=== PATIENT | male | born 1955 | race Hispanic/Latino ===

== ENCOUNTER 2022-04-09 23:00 | Inpatient (IN) | payer MEDICARE ==
[2022-04-09 23:45] LABS: #Basophils 0.1 10x3/uL (0.0-0.2); #Eosinphils 0.3 10x3/uL (0.0-0.5); #Monocytes 0.7 10x3/uL (0.0-1.1); #Neutrophils 7.6 10x3/uL (1.5-8.4); %Basophils 1.2 % (0.0-2.0); %Eosinophils 3.5 % (0.0-6.0); %Lymphocytes 6.1 % (18.0-47.0); %Monocytes 7.1 % (0.0-10.0); %Neutrophils 81.2 % (40.0-75.0); Mean Corpuscular HGB CONC 33.2 g/dL (32.0-36.0); Mean Corpuscular Hemoglobin 31.1 pg (27.0-33.0); Mean Corpuscular Volume 93.5 fl (81.2-95.1); Mean Platelet Volume 9.8 fl (7.4-10.4); Platelet Count 324 10x3/uL (150-450); RBC Distribution Width 16.6 % (11.5-14.5); Red Blood Cell (RBC) Count 3.22 10x6/uL (4.32-5.72); White Blood Cell (WBC) Count 9.4 10x3/uL (3.5-10.5)
[2022-04-10 00:08] LABS: ALT (SGPT) 29 U/L (8-55); AST (SGOT) 52 U/L (5-34); Albumin 4.2 g/dL (3.4-4.8); Alkaline Phosphatase 125 U/L (40-110); Anion Gap 17 mmol/L (10-20); BUN (Urea Nitrogen) 18 mg/dL (8.4-25.7); Bilirubin, Total 0.5 mg/dL (0.2-1.2); CK (CPK) 99 U/L (30-200); Calc. Creatinine Clearance 0 mL/min (70-130); Calcium 8.7 mg/dL (7.8-10.44); Carbon Dioxide 20 mmol/L (23-31); Chloride 106 mmol/L (98-107); Estimated GFR 67; Globulin 2.2 g/dL (2.4-3.5); Glucose 106 mg/dL (80-115); Potassium 4.7 mmol/L (3.5-5.1); Protein, Total 6.4 g/dL (5.8-8.1); Sodium 138 mmol/L (136-145)
[2022-04-10] MEDS ORDERED: Guaifenesin DM 100-10/5 ML UDCUP PO PRN (00:59)
[2022-04-10] MEDS ORDERED: Senokot S 8.6-50 MG TAB PO PRN (00:59)
[2022-04-10] MEDS ORDERED: Dextrose 50% Abboject 50 ML SYRINGE SLOW IVP PRN (00:59)
[2022-04-10] MEDS ORDERED: Ondansetron PF 4 MG/2 ML Vial IVP PRN (00:59)
[2022-04-10] MEDS ORDERED: Acetaminophen 325 MG TAB PO PRN (00:59)
[2022-04-10] MEDS ORDERED: Calcium Carbonate 500 MG ChewTAB PO PRN (00:59)
[2022-04-10] MEDS ORDERED: Dextrose 5% in Water 1,000 ML IV PRN (00:59)
[2022-04-10] MEDS ORDERED: Sodium Chloride 0.9% 500 ML IV SCH (04:00)
[2022-04-10 04:35] LABS: Bilirubin Neg (Negative); Blood, Urine 50 (Negative); Clarity Cloudy (Clear); Glucose, Urine (Dipstick) Normal (Negative); Ketone, Urine Negative (Negative); Leukocyte 500 (Negative); Nitrite Negative (Negative); Protein, Urine (Dipstick) 30 mg/dl (Neg-Trace); Specific Gravity, Urine 1.005 (1.005-1.030); Urobilinogen Normal mg/dL (Less than 2); pH, Urine 6.5 (5.0-9.0)
[2022-04-10 04:46] LABS: Bacteria/HPF 1+ HPF (None Seen); RBC/HPF 0-3 HPF (0-3); Squamous Epithelial 0-3 HPF (0-3); WBC/HPF Greater Than 50 HPF (0-3)
[2022-04-10] MEDS ORDERED: FLU VACC QS2022-23(65YR UP)/PF 240 MCG/0.7 ML SYRINGE IM ONE (06:00)
[2022-04-10 06:36] LABS: Troponin I 0.016 ng/mL (< 0.028)
[2022-04-10 06:38] LABS: Troponin I 0.019 ng/mL (< 0.028)
[2022-04-10] MEDS ORDERED: Enoxaparin Sodium 40 MG/0.4 ML SYRINGE SC SCH (09:00)
[2022-04-10] MEDS: Finasteride 5 MG TAB PO SCH (09:00)
[2022-04-10] MEDS: Icosapent Ethyl 1 GM CAPSULE PO SCH ×2 (09:00→21:49)
[2022-04-10] MEDS ORDERED: Iopamidol 370 76% 100 ML VIAL ONE (09:06)
[2022-04-10 12:46] LABS: Hemoglobin A1c 7.1 % (4.0-6.0)
[2022-04-10] MEDS: Gabapentin 300 MG CAP PO SCH ×3 (14:20→19:32)
[2022-04-10] MEDS: Clopidogrel Bisulfate 75 MG TAB PO SCH (14:21)
[2022-04-10] MEDS: Aspirin 81 mg Enteric Coated Tablet PO SCH (14:21)
[2022-04-10] MEDS: Tamsulosin HCl 0.4 MG CAP PO SCH (14:21)
[2022-04-10] MEDS ORDERED: Morphine 2 MG/ML VIAL SLOW IVP PRN (18:38)
[2022-04-10] MEDS: HumaLOG 300 UNITS/3 ML VIAL SC PRN (21:45)
[2022-04-10] MEDS: Simvastatin 10 MG TAB PO SCH (21:49)
[2022-04-10] MEDS: Enoxaparin Sodium 40 MG/0.4 ML SYRINGE SC SCH (21:49)
[2022-04-11 02:42] VITALS: BMI 26.6
[2022-04-11] MEDS: HumaLOG 300 UNITS/3 ML VIAL SC PRN ×3 (06:48→17:05)
[2022-04-11] MEDS: Clopidogrel Bisulfate 75 MG TAB PO SCH (08:24)
[2022-04-11] MEDS: Gabapentin 300 MG CAP PO SCH ×3 (08:24→20:46)
[2022-04-11] MEDS: Aspirin 81 mg Enteric Coated Tablet PO SCH (08:25)
[2022-04-11] MEDS: Icosapent Ethyl 1 GM CAPSULE PO SCH ×2 (08:25→20:47)
[2022-04-11] MEDS: Tamsulosin HCl 0.4 MG CAP PO SCH (08:25)
[2022-04-11] MEDS: Finasteride 5 MG TAB PO SCH (08:27)
[2022-04-11] MEDS: Simvastatin 10 MG TAB PO SCH (20:46)
[2022-04-11] MEDS: Enoxaparin Sodium 40 MG/0.4 ML SYRINGE SC SCH (20:46)
[2022-04-12] MEDS: HumaLOG 300 UNITS/3 ML VIAL SC PRN ×4 (02:13→17:14)
[2022-04-12 04:38] LABS: #Basophils 0.1 10x3/uL (0.0-0.2); #Eosinphils 0.3 10x3/uL (0.0-0.5); #Monocytes 0.5 10x3/uL (0.0-1.1); #Neutrophils 4.8 10x3/uL (1.5-8.4); %Basophils 1.3 % (0.0-2.0); %Eosinophils 4.1 % (0.0-6.0); %Monocytes 7.5 % (0.0-10.0); Hemoglobin 10.1 g/dL (13.5-17.5); Mean Corpuscular HGB CONC 33.1 g/dL (32.0-36.0); Mean Corpuscular Hemoglobin 30.7 pg (27.0-33.0); Mean Corpuscular Volume 92.7 fl (81.2-95.1); Mean Platelet Volume 10.4 fl (7.4-10.4); Platelet Count 260 10x3/uL (150-450); RBC Distribution Width 16.3 % (11.5-14.5); Red Blood Cell (RBC) Count 3.29 10x6/uL (4.32-5.72); White Blood Cell (WBC) Count 6.2 10x3/uL (3.5-10.5)
[2022-04-12 04:39] LABS: Anion Gap 12 mmol/L (10-20); BUN (Urea Nitrogen) 15 mg/dL (8.4-25.7); Calc. Creatinine Clearance 61 mL/min (70-130); Calcium 8.7 mg/dL (7.8-10.44); Carbon Dioxide 24 mmol/L (23-31); Chloride 102 mmol/L (98-107); Estimated GFR 60; Potassium 4.2 mmol/L (3.5-5.1); Sodium 134 mmol/L (136-145)
[2022-04-12 04:42] LABS: Glucose 433 mg/dL (80-115)
[2022-04-12] MEDS: Clopidogrel Bisulfate 75 MG TAB PO SCH (08:51)
[2022-04-12] MEDS: Icosapent Ethyl 1 GM CAPSULE PO SCH (08:51)
[2022-04-12] MEDS: Gabapentin 300 MG CAP PO SCH ×2 (08:51→14:43)
[2022-04-12] MEDS: Aspirin 81 mg Enteric Coated Tablet PO SCH (08:51)
[2022-04-12] MEDS: Finasteride 5 MG TAB PO SCH (08:51)
[2022-04-12] MEDS: Tamsulosin HCl 0.4 MG CAP PO SCH (08:51)
[2022-04-12 17:12] VITALS: BP 150/69; TEMP 98.3
[2022-04-12] MEDS ORDERED: Lantus 1000 UNITS/10 ML VIAL SC SCH (21:00)
[2022-04-13] MEDS ORDERED: Empagliflozin 25 MG TAB PO SCH (09:00)
[2022-04-13] MEDS ORDERED: Lantus 1000 UNITS/10 ML VIAL SC SCH (09:00)
== END 2022-04-12 18:00 | disposition home or self-care (01) | DRG 312 ==
LOC: CSHERS 23:00 → INTOOBSV 04-10 03:33 → CSHTELE 04-10 03:33 → OBSVTOIN 04-11 17:54 → CSHTELE 04-12 01:08
PROVIDERS: ADMIT Nurse Practitioner Family; ATTEND Family Medicine
DX: R55 Syncope and collapse (principal); Z20.822 Contact with and (suspected) exposure to COVID-19; I10 Essential (primary) hypertension; I25.10 Atherosclerotic heart disease of native coronary artery without angina pectoris; E11.51 Type 2 diabetes mellitus with diabetic peripheral angiopathy without gangrene; N40.0 Benign prostatic hyperplasia without lower urinary tract symptoms; K21.9 Gastro-esophageal reflux disease without esophagitis; D64.9 Anemia, unspecified; F17.210 Nicotine dependence, cigarettes, uncomplicated; E55.9 Vitamin D deficiency, unspecified; E78.00 Pure hypercholesterolemia, unspecified; E11.42 Type 2 diabetes mellitus with diabetic polyneuropathy; Z95.5 Presence of coronary angioplasty implant and graft; Z85.72 Personal history of non-Hodgkin lymphomas; Z92.21 Personal history of antineoplastic chemotherapy; Z87.440 Personal history of urinary (tract) infections; Z88.0 Allergy status to penicillin; Z79.899 Other long term (current) drug therapy; Z79.4 Long term (current) use of insulin; Z86.16 Personal history of COVID-19; Z82.49 Family history of ischemic heart disease and other diseases of the circulatory system; Z83.3 Family history of diabetes mellitus; Z98.49 Cataract extraction status, unspecified eye
CPT/HCPCS: 36415; 36416; 70450; 71045; 71275; 80048; 80053; 81001; 82550; 83036; 84443; 84484; 85025; 85379; 93005; 93306; 93880; 93970; 96372; G0378; J1650; J1815; J7030; Q9967; U0003; U0005

== ENCOUNTER 2022-06-09 01:03 | Inpatient (IN) | payer MEDICARE ==
[2022-06-09 01:41] LABS: Hemoglobin 11.9 g/dL (13.5-17.5); Mean Corpuscular HGB CONC 33.4 g/dL (32.0-36.0); Mean Corpuscular Hemoglobin 28.1 pg (27.0-33.0); Mean Corpuscular Volume 84.2 fl (81.2-95.1); Mean Platelet Volume 10.4 fl (7.4-10.4); Platelet Count 198 10x3/uL (150-450); RBC Distribution Width 14.6 % (11.5-14.5); Red Blood Cell (RBC) Count 4.23 10x6/uL (4.32-5.72); White Blood Cell (WBC) Count 3.1 10x3/uL (3.5-10.5)
[2022-06-09 01:52] LABS: ALT (SGPT) 17 U/L (8-55); AST (SGOT) 21 U/L (5-34); Albumin 3.5 g/dL (3.4-4.8); Alkaline Phosphatase 66 U/L (40-110); Anion Gap 12 mmol/L (10-20); BUN (Urea Nitrogen) 15 mg/dL (8.4-25.7); Bilirubin, Total 0.8 mg/dL (0.2-1.2); Calc. Creatinine Clearance 0 mL/min (70-130); Calcium 8.4 mg/dL (7.8-10.44); Carbon Dioxide 27 mmol/L (23-31); Chloride 97 mmol/L (98-107); Estimated GFR 77; Glucose 226 mg/dL (80-115); Protein, Total 5.5 g/dL (5.8-8.1); Sodium 132 mmol/L (136-145)
[2022-06-09 02:00] LABS: MDiff Complete? YES
[2022-06-09 02:07] LABS: Band 1 % (5-11); Eosinophils 3 % (0-10); Lymphocytes 9 % (21-51); Metamyelocyte 1 % (0-0); Monocytes 7 % (0-10); Neutrophil 78 % (42-75)
[2022-06-09 02:08] LABS: Dohle Bodies SLIGHT; Platelet Morphology Comment Appears Adequate; RBC Morphology Normal; Vacuoles SLIGHT
[2022-06-09 02:09] LABS: SARS-CoV-2 NAA Rapid Test DETECTED (NotDetected)
[2022-06-09 02:23] LABS: Bilirubin Neg (Negative); Blood, Urine 50 (Negative); Clarity Cloudy (Clear); Glucose, Urine (Dipstick) 250 mg/dL (Negative); Ketone, Urine Negative (Negative); Leukocyte 500 (Negative); Nitrite Negative (Negative); Protein, Urine (Dipstick) 100 mg/dl (Neg-Trace); Urobilinogen Normal mg/dL (Less than 2)
[2022-06-09 02:34] LABS: Bacteria/HPF 1+ HPF (None Seen); Renal Epithelial 0-3 HPF (None Seen); Squamous Epithelial 0-3 HPF (0-3); WBC/HPF Greater Than 50 HPF (0-3); Yeast-Budding Rare HPF (None Seen)
[2022-06-09] MEDS ORDERED: cefTRIAXone\\ROCEPHIN 1 GM VIAL ONE (03:01)
[2022-06-09] MEDS ORDERED: Ciprofloxacin 500 MG TAB ONE (03:06)
[2022-06-09] MEDS ORDERED: Ciprofloxacin 500 MG TAB PO SCH (03:15)
[2022-06-09] MEDS ORDERED: Ondansetron PF 4 MG/2 ML Vial IVP PRN (03:40)
[2022-06-09] MEDS ORDERED: Dextrose 50% Abboject 50 ML SYRINGE SLOW IVP PRN (03:40)
[2022-06-09] MEDS ORDERED: Senokot S 8.6-50 MG TAB PO PRN (03:40)
[2022-06-09] MEDS ORDERED: Calcium Carbonate 500 MG ChewTAB PO PRN (03:40)
[2022-06-09] MEDS ORDERED: Dextrose 5% in Water 1,000 ML IV PRN (03:40)
[2022-06-09] MEDS ORDERED: Ipratropium/Albuterol 3 ML NEB NEB PRN (03:43)
[2022-06-09] MEDS ORDERED: Acetaminophen 325 MG TAB ONE (03:55)
[2022-06-09 03:59] VITALS: BMI 26.6
[2022-06-09] MEDS ORDERED: Ipratropium/Albuterol 3 ML NEB NEB SCH (04:00)
[2022-06-09] MEDS ORDERED: methylPREDNISolone Sod Succ/PF 125 MG/2 ML VIAL ONE (04:07)
[2022-06-09] MEDS ORDERED: Ipratropium Oral Inhaler INH PRN ×2 (04:14→04:43)
[2022-06-09] MEDS ORDERED: methylPREDNISolone Sod Succ/PF 125 MG/2 ML VIAL IVP SCH (04:15)
[2022-06-09] MEDS: Acetaminophen 325 MG TAB PO PRN (04:15)
[2022-06-09] MEDS: Ventolin HFA Inhaler 60 PUFF INHALER INH PRN ×2 (04:20→09:05)
[2022-06-09] MEDS ORDERED: Ventolin HFA Inhaler 60 PUFF INHALER ONE (04:21)
[2022-06-09] MEDS ORDERED: Mometasone/Formoterol 60 PUFF AER INH ONE (08:40)
[2022-06-09] MEDS ORDERED: VORICONAZOLE 200 MG PO SCH (09:00)
[2022-06-09] MEDS ORDERED: Lantus 1000 UNITS/10 ML VIAL SC SCH (09:00)
[2022-06-09] MEDS: Mometasone/Formoterol 200/5 60 PUFF INH SCH ×2 (09:04→20:00)
[2022-06-09] MEDS ORDERED: Clopidogrel Bisulfate 75 MG TAB ONE (09:06)
[2022-06-09] MEDS ORDERED: methylPREDNISolone Sod Succ 40 MG VIAL ONE (09:07)
[2022-06-09] MEDS ORDERED: Benzonatate 100 MG CAP ONE (09:07)
[2022-06-09] MEDS ORDERED: Gabapentin 300 MG CAP ONE (09:13)
[2022-06-09] MEDS: Gabapentin 300 MG CAP PO SCH ×3 (09:24→21:21)
[2022-06-09] MEDS: Benzonatate 100 MG CAP PO SCH ×3 (09:24→21:21)
[2022-06-09] MEDS: Clopidogrel Bisulfate 75 MG TAB PO SCH (09:24)
[2022-06-09] MEDS: valACYclovir 500 MG TAB PO SCH (09:26)
[2022-06-09] MEDS ORDERED: Carvedilol 3.125 MG TAB ONE (09:39)
[2022-06-09] MEDS ORDERED: Tamsulosin HCl 0.4 MG CAP ONE (09:39)
[2022-06-09] MEDS: Lisinopril 2.5 MG TAB PO SCH (09:50)
[2022-06-09] MEDS: Finasteride 5 MG TAB PO SCH (09:50)
[2022-06-09] MEDS: Zinc Gluconate 50 MG TAB PO SCH (09:50)
[2022-06-09] MEDS: guaiFENesin ER 600 MG TAB PO SCH ×2 (09:51→21:21)
[2022-06-09] MEDS: Carvedilol 3.125 MG TAB PO SCH (09:51)
[2022-06-09] MEDS: Tamsulosin HCl 0.4 MG CAP PO SCH (09:51)
[2022-06-09] MEDS: Icosapent Ethyl 1 GM CAPSULE PO SCH ×2 (09:51→22:07)
[2022-06-09] MEDS: methylPREDNISolone Sod Succ 40 MG VIAL IVP SCH ×2 (09:55→21:17)
[2022-06-09] MEDS ORDERED: Iopamidol 370 76% 100 ML VIAL ONE (10:06)
[2022-06-09] MEDS: Nicotine 14 MG PATCH TD SCH (10:13)
[2022-06-09] MEDS: Empagliflozin 25 MG TAB PO SCH (10:14)
[2022-06-09] MEDS: Lantus 1000 UNITS/10 ML VIAL SC SCH (10:47)
[2022-06-09] MEDS: cefTRIAXone\\ROCEPHIN 1 GM in Sodium Chloride 0.9% 100 ML IVPB SCH (16:24)
[2022-06-09] MEDS: HumaLOG 300 UNITS/3 ML VIAL SC PRN ×2 (18:00→21:18)
[2022-06-09] MEDS: Mirtazapine 15 MG TAB PO SCH (21:18)
[2022-06-09] MEDS: Simvastatin 10 MG TAB PO SCH (21:20)
[2022-06-10 04:23] LABS: Hemoglobin 11.5 g/dL (13.5-17.5); Mean Corpuscular HGB CONC 33.8 g/dL (32.0-36.0); Mean Corpuscular Hemoglobin 28.1 pg (27.0-33.0); Mean Corpuscular Volume 83.1 fl (81.2-95.1); Mean Platelet Volume 10.2 fl (7.4-10.4); Platelet Count 243 10x3/uL (150-450); RBC Distribution Width 14.7 % (11.5-14.5); Red Blood Cell (RBC) Count 4.09 10x6/uL (4.32-5.72); White Blood Cell (WBC) Count 4.3 10x3/uL (3.5-10.5)
[2022-06-10 04:36] LABS: Anion Gap 12 mmol/L (10-20); BUN (Urea Nitrogen) 25 mg/dL (8.4-25.7); Calc. Creatinine Clearance 77 mL/min (70-130); Calcium 8.7 mg/dL (7.8-10.44); Carbon Dioxide 24 mmol/L (23-31); Chloride 103 mmol/L (98-107); Estimated GFR 79; Glucose 373 mg/dL (80-115); Potassium 4.1 mmol/L (3.5-5.1); Sodium 135 mmol/L (136-145)
[2022-06-10 04:46] LABS: MDiff Complete? YES
[2022-06-10 04:50] LABS: Band 5 % (5-11); Lymphocytes 9 % (21-51); Monocytes 2 % (0-10); Neutrophil 84 % (42-75)
[2022-06-10 04:51] LABS: Platelet Morphology Comment Appears Adequate; RBC Morphology Normal
[2022-06-10] MEDS: HumaLOG 300 UNITS/3 ML VIAL SC PRN ×2 (05:45→11:35)
[2022-06-10] MEDS: Tamsulosin HCl 0.4 MG CAP PO SCH (09:02)
[2022-06-10] MEDS: Finasteride 5 MG TAB PO SCH (09:02)
[2022-06-10] MEDS: Benzonatate 100 MG CAP PO SCH ×3 (09:02→21:11)
[2022-06-10] MEDS: Carvedilol 3.125 MG TAB PO SCH (09:02)
[2022-06-10] MEDS: Gabapentin 300 MG CAP PO SCH ×3 (09:02→21:10)
[2022-06-10] MEDS: Clopidogrel Bisulfate 75 MG TAB PO SCH (09:02)
[2022-06-10] MEDS: Lisinopril 2.5 MG TAB PO SCH (09:02)
[2022-06-10] MEDS: methylPREDNISolone Sod Succ 40 MG VIAL IVP SCH (09:02)
[2022-06-10] MEDS: Empagliflozin 25 MG TAB PO SCH (09:06)
[2022-06-10] MEDS: Nicotine 14 MG PATCH TD SCH (09:06)
[2022-06-10] MEDS: Icosapent Ethyl 1 GM CAPSULE PO SCH ×2 (09:06→23:08)
[2022-06-10] MEDS: guaiFENesin ER 600 MG TAB PO SCH ×2 (09:06→21:10)
[2022-06-10] MEDS: valACYclovir 500 MG TAB PO SCH (09:06)
[2022-06-10] MEDS: Lantus 1000 UNITS/10 ML VIAL SC SCH (09:06)
[2022-06-10] MEDS: Zinc Gluconate 50 MG TAB PO SCH (09:07)
[2022-06-10] MEDS: Mometasone/Formoterol 200/5 60 PUFF INH SCH ×2 (10:45→18:30)
[2022-06-10] MEDS: cefTRIAXone\\ROCEPHIN 1 GM in Sodium Chloride 0.9% 100 ML IVPB SCH (17:19)
[2022-06-10] MEDS: Mirtazapine 15 MG TAB PO SCH (21:09)
[2022-06-10] MEDS: Simvastatin 10 MG TAB PO SCH (21:10)
[2022-06-11] MEDS: Acetaminophen 325 MG TAB PO PRN (05:01)
[2022-06-11] MEDS: Mometasone/Formoterol 200/5 60 PUFF INH SCH ×2 (08:06→19:50)
[2022-06-11] MEDS: methylPREDNISolone Sod Succ 40 MG VIAL IVP SCH (09:11)
[2022-06-11] MEDS: Empagliflozin 25 MG TAB PO SCH (09:11)
[2022-06-11] MEDS: Clopidogrel Bisulfate 75 MG TAB PO SCH (09:11)
[2022-06-11] MEDS: guaiFENesin ER 600 MG TAB PO SCH ×2 (09:11→20:22)
[2022-06-11] MEDS: Carvedilol 3.125 MG TAB PO SCH (09:12)
[2022-06-11] MEDS: Gabapentin 300 MG CAP PO SCH ×3 (09:12→20:22)
[2022-06-11] MEDS: Lantus 1000 UNITS/10 ML VIAL SC SCH (09:12)
[2022-06-11] MEDS: Finasteride 5 MG TAB PO SCH (09:12)
[2022-06-11] MEDS: Icosapent Ethyl 1 GM CAPSULE PO SCH ×2 (09:12→20:22)
[2022-06-11] MEDS: valACYclovir 500 MG TAB PO SCH (09:12)
[2022-06-11] MEDS: Tamsulosin HCl 0.4 MG CAP PO SCH (09:12)
[2022-06-11] MEDS: Benzonatate 100 MG CAP PO SCH (09:12)
[2022-06-11] MEDS: Zinc Gluconate 50 MG TAB PO SCH (09:13)
[2022-06-11] MEDS: Nicotine 14 MG PATCH TD SCH (09:13)
[2022-06-11] MEDS: Lisinopril 2.5 MG TAB PO SCH (10:08)
[2022-06-11] MEDS ORDERED: Ventolin HFA Inhaler 60 PUFF INHALER INH PRN (14:30)
[2022-06-11] MEDS: Ventolin HFA Inhaler 60 PUFF INHALER INH SCH ×3 (16:15→23:05)
[2022-06-11] MEDS: cefTRIAXone\\ROCEPHIN 1 GM in Sodium Chloride 0.9% 100 ML IVPB SCH (16:56)
[2022-06-11] MEDS: HumaLOG 300 UNITS/3 ML VIAL SC PRN ×2 (16:56→20:22)
[2022-06-11] MEDS: Mirtazapine 15 MG TAB PO SCH (20:22)
[2022-06-11] MEDS: Simvastatin 10 MG TAB PO SCH (20:22)
[2022-06-12] MEDS: Guaifenesin DM 100-10/5 ML UDCUP PO PRN (01:14)
[2022-06-12] MEDS: Ventolin HFA Inhaler 60 PUFF INHALER INH SCH ×6 (02:40→22:48)
[2022-06-12] MEDS: HumaLOG 300 UNITS/3 ML VIAL SC PRN (05:38)
[2022-06-12] MEDS: Mometasone/Formoterol 200/5 60 PUFF INH SCH ×2 (07:20→19:38)
[2022-06-12] MEDS: Icosapent Ethyl 1 GM CAPSULE PO SCH ×2 (08:22→21:52)
[2022-06-12] MEDS: Clopidogrel Bisulfate 75 MG TAB PO SCH (08:22)
[2022-06-12] MEDS: Tamsulosin HCl 0.4 MG CAP PO SCH (08:23)
[2022-06-12] MEDS: Zinc Gluconate 50 MG TAB PO SCH (08:23)
[2022-06-12] MEDS: guaiFENesin ER 600 MG TAB PO SCH ×2 (08:23→21:51)
[2022-06-12] MEDS: Finasteride 5 MG TAB PO SCH (08:23)
[2022-06-12] MEDS: Multivit, Therapeutic 1 TAB PO SCH (08:23)
[2022-06-12] MEDS: Gabapentin 300 MG CAP PO SCH ×3 (08:24→21:52)
[2022-06-12] MEDS: methylPREDNISolone Sod Succ 40 MG VIAL IVP SCH (08:25)
[2022-06-12] MEDS: valACYclovir 500 MG TAB PO SCH (08:56)
[2022-06-12] MEDS: Empagliflozin 25 MG TAB PO SCH (08:56)
[2022-06-12] MEDS: Lantus 1000 UNITS/10 ML VIAL SC SCH (08:56)
[2022-06-12 15:27] LABS: Mean Corpuscular Hemoglobin 27.8 pg (27.0-33.0); Mean Corpuscular Volume 84.3 fl (81.2-95.1); Mean Platelet Volume 9.9 fl (7.4-10.4); Platelet Count 243 10x3/uL (150-450); RBC Distribution Width 14.9 % (11.5-14.5); Red Blood Cell (RBC) Count 3.95 10x6/uL (4.32-5.72); White Blood Cell (WBC) Count 2.7 10x3/uL (3.5-10.5)
[2022-06-12 15:29] LABS: ALT (SGPT) 12 U/L (8-55); AST (SGOT) 15 U/L (5-34); Alkaline Phosphatase 57 U/L (40-110); Anion Gap 12 mmol/L (10-20); BUN (Urea Nitrogen) 23 mg/dL (8.4-25.7); Bilirubin, Total 0.5 mg/dL (0.2-1.2); CRP (Inflammatory) 10.48 mg/dL (= or < 0.5); Calc. Creatinine Clearance 68 mL/min (70-130); Calcium 8.4 mg/dL (7.8-10.44); Carbon Dioxide 26 mmol/L (23-31); Chloride 100 mmol/L (98-107); Estimated GFR 68; Globulin 2.4 g/dL (2.4-3.5); Glucose 255 mg/dL (80-115); Magnesium 2.2 mg/dL (1.6-2.6); Potassium 3.9 mmol/L (3.5-5.1); Protein, Total 5.4 g/dL (5.8-8.1); Sodium 134 mmol/L (136-145)
[2022-06-12 15:38] LABS: MDiff Complete? YES
[2022-06-12 16:27] LABS: Lymphocytes 8 % (21-51); Monocytes 1 % (0-10); Neutrophil 90 % (42-75); Reactive Lymphocytes 1 % (0-10)
[2022-06-12 16:30] LABS: Anisocytosis SLIGHT = 6-15 cells (100X) (0-5/hpf); Hypochromia SLIGHT = 6-15 cells (100X) (0-5/hpf); Ovalocytes SLIGHT = 2-5 cells (100X) (0-1/hpf)
[2022-06-12 16:31] LABS: Hypersemented Neutrophil SLIGHT; Platelet Morphology Comment Appears Adequate
[2022-06-12] MEDS: cefTRIAXone\\ROCEPHIN 1 GM in Sodium Chloride 0.9% 100 ML IVPB SCH (18:54)
[2022-06-12] MEDS: Mirtazapine 15 MG TAB PO SCH (21:51)
[2022-06-12] MEDS: Doxycycline 100 MG CAP PO SCH (21:51)
[2022-06-12] MEDS: Simvastatin 10 MG TAB PO SCH (21:52)
[2022-06-13] MEDS: HumaLOG 300 UNITS/3 ML VIAL SC PRN ×3 (00:29→18:11)
[2022-06-13] MEDS: Ventolin HFA Inhaler 60 PUFF INHALER INH SCH ×6 (02:26→23:13)
[2022-06-13] MEDS: Guaifenesin DM 100-10/5 ML UDCUP PO PRN (04:35)
[2022-06-13 04:44] LABS: Anion Gap 15 mmol/L (10-20); BUN (Urea Nitrogen) 29 mg/dL (8.4-25.7); Calc. Creatinine Clearance 59 mL/min (70-130); Calcium 8.9 mg/dL (7.8-10.44); Carbon Dioxide 24 mmol/L (23-31); Chloride 102 mmol/L (98-107); Estimated GFR 58; Glucose 254 mg/dL (80-115); Potassium 3.9 mmol/L (3.5-5.1); Sodium 137 mmol/L (136-145)
[2022-06-13 04:52] LABS: Hemoglobin 11.7 g/dL (13.5-17.5); Mean Corpuscular HGB CONC 33.4 g/dL (32.0-36.0); Mean Corpuscular Hemoglobin 27.9 pg (27.0-33.0); Mean Corpuscular Volume 83.5 fl (81.2-95.1); Platelet Count 277 10x3/uL (150-450); RBC Distribution Width 14.8 % (11.5-14.5); Red Blood Cell (RBC) Count 4.19 10x6/uL (4.32-5.72); White Blood Cell (WBC) Count 3.4 10x3/uL (3.5-10.5)
[2022-06-13 05:01] LABS: MDiff Complete? YES
[2022-06-13 05:48] LABS: Lymphocytes 4 % (21-51); Monocytes 6 % (0-10); Neutrophil 90 % (42-75)
[2022-06-13 05:55] LABS: Hypochromia SLIGHT = 6-15 cells (100X) (0-5/hpf); Macrocytosis SLIGHT = 6-15 cells (100X) (0-5/hpf); Ovalocytes SLIGHT = 2-5 cells (100X) (0-1/hpf)
[2022-06-13 05:58] LABS: Large Platelets SLIGHT; Platelet Morphology Comment Appears Adequate
[2022-06-13] MEDS: Mometasone/Formoterol 200/5 60 PUFF INH SCH ×2 (07:57→19:23)
[2022-06-13] MEDS: Icosapent Ethyl 1 GM CAPSULE PO SCH ×2 (09:59→21:24)
[2022-06-13] MEDS: Tamsulosin HCl 0.4 MG CAP PO SCH (09:59)
[2022-06-13] MEDS: Clopidogrel Bisulfate 75 MG TAB PO SCH (10:00)
[2022-06-13] MEDS: Finasteride 5 MG TAB PO SCH (10:00)
[2022-06-13] MEDS: Lantus 1000 UNITS/10 ML VIAL SC SCH (10:00)
[2022-06-13] MEDS: Multivit, Therapeutic 1 TAB PO SCH (10:00)
[2022-06-13] MEDS: guaiFENesin ER 600 MG TAB PO SCH ×2 (10:00→21:24)
[2022-06-13] MEDS: methylPREDNISolone Sod Succ 40 MG VIAL IVP SCH (10:01)
[2022-06-13] MEDS: valACYclovir 500 MG TAB PO SCH (10:07)
[2022-06-13] MEDS: Gabapentin 300 MG CAP PO SCH ×3 (10:07→21:24)
[2022-06-13] MEDS: Doxycycline 100 MG CAP PO SCH ×2 (10:07→21:24)
[2022-06-13] MEDS: Empagliflozin 25 MG TAB PO SCH (10:07)
[2022-06-13] MEDS: Zinc Sulfate 220 MG CAP PO SCH (13:00)
[2022-06-13] MEDS: Mirtazapine 15 MG TAB PO SCH (21:24)
[2022-06-13] MEDS: Simvastatin 10 MG TAB PO SCH (21:24)
[2022-06-14] MEDS: Ventolin HFA Inhaler 60 PUFF INHALER INH SCH ×6 (07:30→23:24)
[2022-06-14] MEDS: Mometasone/Formoterol 200/5 60 PUFF INH SCH ×2 (07:30→19:15)
[2022-06-14 08:48] LABS: #Monocytes 0.2 10x3/uL (0.0-1.1); #Neutrophils 2.4 10x3/uL (1.5-8.4); %Basophils 0.6 % (0.0-2.0); %Eosinophils 0.6 % (0.0-6.0); %Lymphocytes 15.7 % (18.0-47.0); %Monocytes 5.7 % (0.0-10.0); %Neutrophils 72.9 % (40.0-75.0); Hemoglobin 11.9 g/dL (13.5-17.5); Mean Corpuscular HGB CONC 33.1 g/dL (32.0-36.0); Mean Corpuscular Volume 84.5 fl (81.2-95.1); Platelet Count 309 10x3/uL (150-450); RBC Distribution Width 15.1 % (11.5-14.5); Red Blood Cell (RBC) Count 4.25 10x6/uL (4.32-5.72); White Blood Cell (WBC) Count 3.3 10x3/uL (3.5-10.5)
[2022-06-14 08:56] LABS: Anion Gap 16 mmol/L (10-20); BUN (Urea Nitrogen) 31 mg/dL (8.4-25.7); Calc. Creatinine Clearance 66 mL/min (70-130); Calcium 9.2 mg/dL (7.8-10.44); Carbon Dioxide 25 mmol/L (23-31); Chloride 104 mmol/L (98-107); Estimated GFR 66; Glucose 115 mg/dL (80-115); Potassium 4.2 mmol/L (3.5-5.1); Sodium 141 mmol/L (136-145)
[2022-06-14] MEDS: Lantus 1000 UNITS/10 ML VIAL SC SCH (09:24)
[2022-06-14] MEDS: Icosapent Ethyl 1 GM CAPSULE PO SCH (09:24)
[2022-06-14] MEDS: Finasteride 5 MG TAB PO SCH (10:23)
[2022-06-14] MEDS: Tamsulosin HCl 0.4 MG CAP PO SCH (10:23)
[2022-06-14] MEDS: Empagliflozin 25 MG TAB PO SCH (10:23)
[2022-06-14] MEDS: Doxycycline 100 MG CAP PO SCH ×2 (10:23→20:50)
[2022-06-14] MEDS: Multivit, Therapeutic 1 TAB PO SCH (10:23)
[2022-06-14] MEDS: Clopidogrel Bisulfate 75 MG TAB PO SCH (10:24)
[2022-06-14] MEDS: valACYclovir 500 MG TAB PO SCH (10:24)
[2022-06-14] MEDS: guaiFENesin ER 600 MG TAB PO SCH ×2 (10:24→20:51)
[2022-06-14] MEDS: Gabapentin 300 MG CAP PO SCH ×3 (10:24→20:50)
[2022-06-14] MEDS: methylPREDNISolone Sod Succ 40 MG VIAL IVP SCH (10:24)
[2022-06-14] MEDS: Zinc Sulfate 220 MG CAP PO SCH (12:48)
[2022-06-14] MEDS: HumaLOG 300 UNITS/3 ML VIAL SC PRN (19:25)
[2022-06-14] MEDS: Simvastatin 10 MG TAB PO SCH (20:50)
[2022-06-14] MEDS: Mirtazapine 15 MG TAB PO SCH (20:51)
[2022-06-15] MEDS: HumaLOG 300 UNITS/3 ML VIAL SC PRN ×2 (01:43→06:22)
[2022-06-15] MEDS: Icosapent Ethyl 1 GM CAPSULE PO SCH ×2 (01:55→09:30)
[2022-06-15] MEDS: Ventolin HFA Inhaler 60 PUFF INHALER INH SCH ×2 (04:13→10:17)
[2022-06-15 04:54] LABS: Anion Gap 12 mmol/L (10-20); BUN (Urea Nitrogen) 29 mg/dL (8.4-25.7); Calc. Creatinine Clearance 68 mL/min (70-130); Calcium 8.7 mg/dL (7.8-10.44); Carbon Dioxide 25 mmol/L (23-31); Chloride 100 mmol/L (98-107); Estimated GFR 69; Glucose 324 mg/dL (80-115); Sodium 133 mmol/L (136-145)
[2022-06-15 05:37] LABS: Hemoglobin 10.8 g/dL (13.5-17.5); Mean Corpuscular HGB CONC 33.5 g/dL (32.0-36.0); Mean Corpuscular Hemoglobin 27.9 pg (27.0-33.0); Mean Corpuscular Volume 83.2 fl (81.2-95.1); Mean Platelet Volume 9.6 fl (7.4-10.4); Platelet Count 292 10x3/uL (150-450); Red Blood Cell (RBC) Count 3.87 10x6/uL (4.32-5.72); White Blood Cell (WBC) Count 2.3 10x3/uL (3.5-10.5)
[2022-06-15 06:30] LABS: MDiff Complete? YES
[2022-06-15 06:53] LABS: Band 5 % (5-11); Eosinophils 1 % (0-10); Lymphocytes 13 % (21-51); Monocytes 6 % (0-10); Neutrophil 74 % (42-75)
[2022-06-15 06:54] LABS: Platelet Morphology Comment PLT clumps seen-ADEQ; RBC Morphology Normal
[2022-06-15] MEDS: guaiFENesin ER 600 MG TAB PO SCH (09:29)
[2022-06-15] MEDS: Empagliflozin 25 MG TAB PO SCH (09:30)
[2022-06-15] MEDS: Tamsulosin HCl 0.4 MG CAP PO SCH (09:30)
[2022-06-15] MEDS: Gabapentin 300 MG CAP PO SCH ×2 (09:30→15:25)
[2022-06-15] MEDS: Finasteride 5 MG TAB PO SCH (09:30)
[2022-06-15] MEDS: Doxycycline 100 MG CAP PO SCH (09:30)
[2022-06-15] MEDS: Multivit, Therapeutic 1 TAB PO SCH (09:30)
[2022-06-15] MEDS: valACYclovir 500 MG TAB PO SCH (09:30)
[2022-06-15] MEDS: Clopidogrel Bisulfate 75 MG TAB PO SCH (09:30)
[2022-06-15] MEDS: methylPREDNISolone Sod Succ 40 MG VIAL IVP SCH (09:31)
[2022-06-15] MEDS: Lantus 1000 UNITS/10 ML VIAL SC SCH (09:31)
[2022-06-15] MEDS: Mometasone/Formoterol 200/5 60 PUFF INH SCH (10:16)
[2022-06-15] MEDS: Zinc Sulfate 220 MG CAP PO SCH (12:43)
[2022-06-15 16:20] VITALS: TEMP 99
[2022-06-15 16:28] VITALS: BP 102/62
== END 2022-06-15 18:00 | disposition home or self-care (01) | DRG 177 ==
LOC: CSHERS 01:03 → CSHERHOLD 03:40 → CSHTELE 12:35
PROVIDERS: ADMIT Internal Medicine; ATTEND Hospitalist
PROC: 8E0ZXY6 Isolation (ICD-10-PCS; principal; 2022-06-09)
DX: U07.1 COVID-19 (principal); J96.01 Acute respiratory failure with hypoxia; J44.1 Chronic obstructive pulmonary disease with (acute) exacerbation; N39.0 Urinary tract infection, site not specified; E87.1 Hypo-osmolality and hyponatremia; C85.90 Non-Hodgkin lymphoma, unspecified, unspecified site; I10 Essential (primary) hypertension; E78.5 Hyperlipidemia, unspecified; I25.10 Atherosclerotic heart disease of native coronary artery without angina pectoris; E11.51 Type 2 diabetes mellitus with diabetic peripheral angiopathy without gangrene; N40.0 Benign prostatic hyperplasia without lower urinary tract symptoms; K21.9 Gastro-esophageal reflux disease without esophagitis; E11.42 Type 2 diabetes mellitus with diabetic polyneuropathy; D63.1 Anemia in chronic kidney disease; I95.1 Orthostatic hypotension; Z88.0 Allergy status to penicillin; Z98.890 Other specified postprocedural states; Z95.5 Presence of coronary angioplasty implant and graft; Z79.4 Long term (current) use of insulin; Z79.899 Other long term (current) drug therapy
CPT/HCPCS: 36415; 36416; 70450; 71045; 71275; 80048; 80053; 81003; 81015; 83605; 83735; 83880; 84484; 85025; 86140; 87086; 93005; 94664; 94760; J0696; J1650; J1815; J2920; J2930; J3490; Q9967